=== PATIENT | female | born 1980 | race Caucasian/White ===

== ENCOUNTER → 2022-03-07 12:32 | Outpatient (CLI) | payer OTHER, SELFPAY ==
--- NOTE | ~2022-03-07 | MM_ITS ---
EXAMINATION: MM screening carson BI w emmie HISTORY: Screening TECHNIQUE: Craniocaudal and mediolateral oblique 3-D tomosynthesis images were obtained and synthetic 2-D images were generated. CAD analysis was submitted and interpreted. COMPARISON: No prior mammogram is available for comparison at this institution. BREAST PARENCHYMAL COMPOSITION: The breasts are extremely dense, which lowers the sensitivity of mamm ography. FINDINGS: There is no evidence of suspicious mass, calcification, or architectural distortion to sugg est malignancy in either breast. There has been no suspicious interval change. IMPRESSION: 1. No mammographic evidence of malignancy. 2. Recommend routine screening mammography in one year. BI-RADS Category 1: Negative Reviewed, dictated and finalized at location A.
== END ==
PROVIDERS: Visit Provider Nurse Practitioner
DX: Z12.31 Encounter for screening mammogram for malignant neoplasm of breast (principal)
CPT/HCPCS: 77063; 77067

== ENCOUNTER 2022-11-28 10:51 | Emergency (ER) | payer OTHER, SELFPAY ==
[2022-11-28 11:01] VITALS: BP 136/80; PULSE 74; RESP 16; TEMP 37; O2SAT 100
--- NOTE | 2022-11-28 11:41 | ED.URI ---
HPI - URI/Sore Throat General Chief Complaint: Upper Respiratory Infection Stated Complaint: Chest, arm and upper back pain Time Seen by Provider: 11/28/22 11:42 Source: patient Mode of arrival: ambulatory Limitations: no limitations History of Present Illness HPI Narrative: 42-year-old female presented for complaint of right chest wall pain for about 1 week. Pain is sharp and stabbing when coughing or deep inspiration, rates 10/10, at rest she has minimal pain. She reports she has been coughing for about 1 month due to suspected influenza at the onset. She denies shortness of breath, wheezing, fatigue, nausea, vomiting, fevers or chills. She has taken Tylenol for pain. Related Data Allergies Allergy/AdvReac Type Severity Reaction Status Date / Time CEPHALEXIN MONOHYDRATE Allergy Intermediate Hives / Uncoded 06/14/14 18:48 Red Face Review of Systems Review of Systems: CONSTITUTIONAL: Denies body aches, fever, chills, or sweats. EYES: Denies visual changes, redness, or discharge. ENT: Denies rhinorrhea, congestion, sore throat, or otalgia. CARDIOVASCULAR: Denies chest pain, palpitations, or edema. RESPIRATORY: Denies dyspnea. GASTROINTESTINAL: Denies abdominal pain, nausea, vomiting, or diarrhea. GENITOURINARY: Denies dysuria or hematuria. SKIN: Denies rash, itching, or wounds. MUSCULOSKELETAL: per HPI All systems reviewed & are unremarkable except as noted in HPI and below PMFSH Comments At time of signature, I have reviewed and agree with nursing past medical, surgical, social and family history unless otherwise noted. Please see nursing chart for further information. There is no relevant family history pertinent to the presenting complaint Exam Narrative: GENERAL: Well-appearing, well-nourished EYES: EOMI. No redness or drainage. Conjunctivae normal. ENT: Mucous membranes pink and moist. No rhinorrhea. TMs normal bilaterally. NECK: Normal AROM. Supple. No lymphadenopathy. CHEST: No respiratory distress. Clear to auscultation. Tender to right chest wall with palpation, no rash/wounds HEART: Regular rate and rhythm. ABDOMEN: Soft, nontender, nondistended, normal active bowel sounds. SKIN: Warm, dry, no rash. Capillary refill normal. Normal skin turgor. NEURO: No focal deficits. Alert and oriented x3. Gait steady. PSYCH: Normal affect. Course Course Emergency Course: Patient is aware of diagnosis, understands and agrees to treatment plan. Anticipatory guidance given. Patient agrees to follow-up as directed and is aware of reasons to seek care at the emergency department. Portions of this record may have been created with voice recognition software Level of Care: Express Care Visit Vital Signs Vital signs: Vital Signs Temperature 98.6 F 11/28/22 11:01 Pulse Rate 74 11/28/22 11:01 Respiratory Rate 16 11/28/22 11:01 Blood Pressure 136/80 11/28/22 11:01 Pulse Oximetry 100 11/28/22 11:01 Temperature 98.6 F 11/28/22 11:01 Pulse Rate 74 11/28/22 11:01 Respiratory Rate 16 11/28/22 11:01 Blood Pressure 136/80 11/28/22 11:01 Pulse Oximetry 100 11/28/22 11:01 Oxygen Delivery Room Air 11/28/22 11:25 MDM - URI/Sore Throat MDM Narrative Medical decision making narrative: Advised supportive measures and signs/symptoms to go to the ER. Pt is appropriate for outpt treatment and f/u. Differential Diagnosis Differential diagnosis: Likely upper respiratory infection, viral infection and other (Costochondritis, pleurisy, musculoskeletal pain, contusion) Discharge Plan Discharge Clinical Impression: Right-sided chest wall pain Patient Disposition: Home, Self-Care Condition: Stable Instructions: Chest Wall Pain (ED) Additional Instructions: Rest. Avoid pushing, pulling, lifting or anything that worsens the symptoms Tylenol 1000mg every 8 hours as needed You can alternate with ibuprofen 600mg Alternate ice/heat to the site. Lidocaine or salon pas
== END 2022-11-28 12:10 | disposition home or self-care (01) ==
PROVIDERS: Emergency Provider Nurse Practitioner Family; PCP Family Medicine
DX: R07.89 Other chest pain (principal)
CPT/HCPCS: 99203; G0463

== ENCOUNTER → 2023-05-16 08:43 | Outpatient (CLI) | payer OTHER, SELFPAY ==
--- NOTE | ~2023-05-16 | MMUS_ITS ---
EXAMINATION: MM diagnostic carson BI w emmie, US breast BI complete HISTORY: Change of the breast density of left breast at 12-1:00 on physical examination TECHNIQUE: ML, MLO and CC 3-D tomosynthesis images of both breasts were performed and synthetic 2-D i mages were generated. CAD analysis was submitted and interpreted. High resolution complete bilateral breast ultrasound examination including all 4 quadrants and subareolar areas was performed. COMPARISON: March 07, 2022 bilateral screening mammogram BREAST PARENCHYMAL COMPOSITION: The breasts are extremely dense, which lowers the sensitivity of mamm ography. FINDINGS: MAMMOGRAPHIC FINDINGS: Focal architectural distortion is suggested in the posterior lower outer left breast (craniocaudal To mosynthesis image ). This does not correspond to the area of change of density of the left breas t reported on physical examination at 12-1:00. No definite correlate is noted on the ML or MLO views. No suspicious mass, architectural distortion, malignant calcification, skin thickening or retraction or significant new or developing density of either breast is noted otherwise. ULTRASOUND: Right breast: 1:00 3 cm from nipple: 4 x 5 x 6.3 mm parallel circumscribed sonolucency with through transmission, w ith no internal vascularity, benign in appearance 2:00 5 cm from nipple: 2 mm circular circumscribed sonolucency without shadowing, likely benign 10:00 10 cm from nipple: Parallel circumscribed approximately 5 x 10 x 8 mm sonolucency with through transmission posterior enhancement, consistent with simple cyst Left breast: 4:00 9 cm from nipple: Parallel circumscribed 2.6 x 3 x 5.4 mm complex lesion without internal vascul arity or posterior shadowing, benign in appearance IMPRESSION: 1. Probably benign finding left mammogram; six-month follow-up diagnostic left mammogram and left deja ast ultrasound examination are recommended 2. No evidence of right breast malignancy BI-RADS category 3, probably benign findings. Reviewed, dictated and finalized at location A. IMPRESSION: 1. Probably benign finding left mammogram; six-month follow-up diagnostic left mammogram and left breast ultrasound examination are recommended 2. No evidence of right breast malignancy BI-RADS category 3, probably benign findings.
== END ==
PROVIDERS: PCP Nurse Practitioner; Visit Provider Nurse Practitioner
DX: N63.20 Unspecified lump in the left breast, unspecified quadrant (principal); R92.8 Other abnormal and inconclusive findings on diagnostic imaging of breast
CPT/HCPCS: 76641; 77062; 77066; G0279

== ENCOUNTER → 2024-01-06 07:47 | Outpatient (CLI) | payer OTHER, SELFPAY ==
--- NOTE | ~2024-01-06 | MMUS_ITS ---
EXAMINATION: MM diagnostic carson LT w emmie, US breast LT limited HISTORY: Six-month follow-up for probably benign left breast mass TECHNIQUE: Craniocaudal, mediolateral, and mediolateral oblique 3-D tomosynthesis images of the left breast were performed and synthetic 2-D images were generated. Spot compression views are also obtain ed. CAD analysis was submitted and interpreted. High resolution limited left breast ultrasound was pe rformed. COMPARISON: 05/16/2023, 03/07/2022 BREAST PARENCHYMAL COMPOSITION: The breasts are heterogeneously dense, which may obscure small masses . FINDINGS: MAMMOGRAPHIC FINDINGS: No suspicious mass, calcification, or architectural distortion are identified to suggest malignancy. There has been no suspicious interval change. ULTRASOUND: There is a stable 5 mm x 3 mm oval, circumscribed, parallel, complex cystic and solid mass with no po sterior features or internal vascularity at the 4:00 location, 9 cm from the nipple. There has been n o suspicious interval change. IMPRESSION: 1. Probably benign left breast mass. 2. Recommend 6 month follow-up bilateral diagnostic mammogram and left breast ultrasound. BI-RADS category 3, probably benign findings. Reviewed, dictated and finalized at location A. [employer] IMPRESSION: 1. Probably benign left breast mass. 2. Recommend 6 month follow-up bilateral diagnostic mammogram and left breast u ltrasound. BI-RADS category 3, probably benign findings.
== END ==
PROVIDERS: PCP Obstetrics & Gynecology Gynecology; Visit Provider Obstetrics & Gynecology Gynecology
DX: R92.8 Other abnormal and inconclusive findings on diagnostic imaging of breast (principal)
CPT/HCPCS: 76642; 77061; 77065; G0279

== ENCOUNTER 2024-07-06 07:56 | Outpatient (CLI) | payer OTHER, SELFPAY ==
--- NOTE | ~2024-07-06 | MMUS_ITS ---
EXAMINATION: MM diagnostic carson BI w emmie, US breast LT limited HISTORY: Six-month follow-up TECHNIQUE: Additional 3-D tomosynthesis images of the breasts were performed and synthetic 2-D images were generated. CAD analysis was submitted and interpreted. High resolution Limited left breast ultr asound was performed. COMPARISON: Comparison to multiple prior studies sequentially, with oldest reviewed study dated 05/2022. BREAST PARENCHYMAL COMPOSITION: Dense: The breasts are extremely dense, which lowers the sensitivity of mammography. FINDINGS: MAMMOGRAPHIC FINDINGS: The breasts are stable. There are no suspicious masses, calcifications or architectural distortion in either breast to suggest malignancy. ULTRASOUND: Limited left breast ultrasound: At 4:00, 9 cm from the nipple there is a small cluster of cysts measu ring 6 mm. This is not significantly changed from prior examination. No suspicious masses to suggest malignancy. IMPRESSION: 1. Small cluster of cysts of the left breast at 4:00, 9 cm from the nipple measuring 6 mm in aggregat e, stable. 2. Given one year of interval stability, recommend 12 month followup bilateral mammogram and Limited left breast ultrasound BI-RADS category 3, probably benign findings. Reviewed, dictated and finalized at location B. IMPRESSION: 1. Small cluster of cysts of the left breast at 4:00, 9 cm from the nipple thanh uring 6 mm in aggregate, stable. 2. Given one year of interval stability, recommend 12 month followup bilateral mammogram and Limited left breast ultrasound BI-RADS category 3, probably benign findings.
== END 2024-07-06 07:57 ==
PROVIDERS: PCP Family Medicine; Visit Provider Obstetrics & Gynecology Gynecology
DX: R92.2 Inconclusive mammogram (principal); N63.20 Unspecified lump in the left breast, unspecified quadrant
CPT/HCPCS: 76642; 77062; 77066; G0279